=== PATIENT | male | born 1975 | race Caucasian/White ===

== ENCOUNTER 2025-01-25 22:37 | Emergency (ER) | payer SELFPAY ==
[~2025-01-25] VITALS: Ht 177.8 cm; Wt 90.7 kg
[2025-01-25 22:40] VITALS: O2SAT 99
[2025-01-25 22:46] VITALS: BP 155/95; PULSE 80; RESP 16; TEMP 36.8; O2SAT 99
== END 2025-01-26 01:09 | disposition left against medical advice (07) ==
LOC: ER 22:37
DX: T14.8XXA Other injury of unspecified body region, initial encounter (principal); Z53.21 Procedure and treatment not carried out due to patient leaving prior to being seen by health care provider; X58.XXXA Exposure to other specified factors, initial encounter; Y93.89 Activity, other specified; Y92.89 Other specified places as the place of occurrence of the external cause; Y99.8 Other external cause status